=== PATIENT | male | born 1990 | race Caucasian/White ===

== ENCOUNTER 2020-08-13 22:32 | Emergency (ER) | payer OTHER ==
[~2020-08-13] VITALS: Ht 185.4 cm; Wt 90.7 kg
[~2020-08-13 22:32] MED LIST: ADVIL200 MG PO; CYCLOBENZAPRINE10 MG PO; EC-NAPROXEN375 MG PO; NORCO 7.5-3251 EACH PO; ONDANSETRON ODT8 MG PO
--- OUTSIDE RECORDS SUMMARY | 2020-08-13 22:34 | XMS ---
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 Care History Medical/Surgical 03/05/2019 [facility] CASE MANAGEMENT REFERRAL MADE- PATIENT HAS [facility] AND NO PCP. E.DHeaven VISIT COUNT (12 MO.) 2 [facility] TOTAL 3 NOTE: Visits indicate total known visits. ED/UCC VISIT TRACKING (12 MO.) 08/13/2020 22:32 [facility] [place] TYPE: Emergency COMPLAINT: - SOB 02/15/2020 23:36 [facility] [place] TYPE: Emergency DIAGNOSES: - CELLULITIS 02/07/2020 02:12 [facility] [place] TYPE: Emergency DIAGNOSES: - Leg Pain - Cellulitis of left lower limb INPATIENT VISIT TRACKING (12 MO.) 02/15/2020 23:36 [facility] [place] TYPE: Medical Surgical DIAGNOSES: - Cellulitis of unspecified part of limb - CELLULITIS [id number]
--- NOTE | 2020-08-15 13:58 | EKG ---
[facility] [address] [facility] [place] [address] Signed Sinus tachycardia Lateral infarct , age undetermined Abnormal ECG When compared with ECG of 03-FEB-2017 12:54, Vent. rate has increased BY 34 BPM Lateral infarct is now present Non-specific change in ST segment in Lateral leads Nonspecific T wave abnormality now evident in Lateral leads Confirmed by HANK DAVE DO ([id number]) on 08/15/2020 1:57:59 PM Electronically Signed By: HANK DAVE DO 08/15/20 1358 PATIENT NAME: JET GERMAIN Electrocardiogram DATE OF : 89 PHYSICIAN: HANK DAVE DO REPORT #: [id number] REPORT IS CONFIDENTIAL AND NOT TO BE RELEASED WITHOUT AUTHORIZATION
== END 2020-08-13 23:26 | disposition home or self-care (01) ==
LOC: ED 22:32
DX: R06.02 Shortness of breath (principal); Z76.5 Malingerer [conscious simulation]; F17.200 Nicotine dependence, unspecified, uncomplicated
CPT/HCPCS: 71045; 93005; 93010; 99285-25

== ENCOUNTER 2020-10-13 14:02 | Emergency (ER) | payer OTHER ==
[~2020-10-13] VITALS: Ht 185.4 cm; Wt 90.7 kg
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
[2020-10-13] MEDS ORDERED: CHLORDIAZEPOXID25 MG PO (16:37)
== END 2020-10-14 01:10 | disposition home or self-care (01) ==
LOC: ED 14:02
DX: K56.41 Fecal impaction (principal); R33.9 Retention of urine, unspecified; F17.200 Nicotine dependence, unspecified, uncomplicated; Z79.899 Other long term (current) drug therapy
CPT/HCPCS: 51702; 51798; 74177; 80053; 81001; 83605; 83690; 85025; 99284-25; J1885; J2270; J2405; J7121; Q9967

== ENCOUNTER 2024-05-12 14:31 | Emergency (ER) | payer OTHER ==
[~2024-05-12] VITALS: Ht 185.4 cm; Wt 79.0 kg
[~2024-05-12 14:31] MED LIST changes: +CHLORDIAZEPOXID25 MG PO
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
[2024-05-12] MEDS ORDERED: BUSPIRONE HCL5 MG PO (15:43)
[2024-05-12] MEDS ORDERED: SUBOXONE 2 MG-1 EAC2 SL (15:44)
[2024-05-12] MEDS ORDERED: CLEOCIN HCL300 MG PO (16:01)
[2024-05-12 16:08] VITALS: BP 126/94
== END 2024-05-12 16:05 | disposition home or self-care (01) ==
LOC: ED 14:31
DX: L02.211 Cutaneous abscess of abdominal wall (principal); F17.200 Nicotine dependence, unspecified, uncomplicated; Z79.899 Other long term (current) drug therapy
CPT/HCPCS: 10060; 99283-25

== ENCOUNTER 2025-05-03 11:13 | Emergency (ER) | payer OTHER ==
[~2025-05-03] VITALS: Ht 185.4 cm; Wt 86.5 kg
[~2025-05-03 11:13] MED LIST changes: +BUSPIRONE HCL5 MG PO; +CLEOCIN HCL300 MG PO; +SUBOXONE 2 MG-1 EAC2 SL
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
[2025-05-03 11:30] LABS: BASOPHILS 0.7 % (0.2-1.2); EOSINOPHILS 2.4 % (0.8-7.0); HEMATOCRIT 35.3 % (40.1-51.0); HEMOGLOBIN 11.9 g/dL (13.7-17.5); LYMPHOCYTES 12.2 % (21.8-53.1); MCH 28.2 PG (25.7-32.2); MCHC 33.7 g/dL (32.3-36.5); MCV 83.6 fL (79.0-92.2); MONOCYTES 6.5 % (5.3-12.2); PLATELET COUNT 260 K/uL (163-337); RBC 4.22 M/uL (4.63-6.08)
[2025-05-03 11:37] LABS: INR 1.11 (0.80-1.30); PROTIME 13.8 Sec (11.2-14.2)
[2025-05-03 11:43] LABS: ALBUMIN/GLOBULIN RATIO 1.11 (1.1-2.4); ALCOHOL, MEDICAL <3 ng/dL (<3); ALKALINE PHOSPHATASE 96 U/L (46-116); ALT (SGPT) 39 U/L (14-59); ANION GAP 13.9 (7-21); AST (SGOT) 46 U/L (15-37); BILIRUBIN, TOTAL 0.4 mg/dL (0.2-1.0); BUN/CREATININE RATIO 13.76 (6.0-28.6); CALCIUM 9.2 mg/dL (8.5-10.1); CARBON DIOXIDE 28 mmol/L (21-32); CHLORIDE 101 mmol/L (98-107); CREATININE, SERUM 1.09 mg/dL (0.70-1.30); GLOMERULAR FILTRATION RATE,EST 91 mL/min (>60); POTASSIUM 3.9 mmol/L (3.5-5.1); PROTEIN, TOTAL 7.6 g/dL (6.4-8.2); UREA NITROGEN 15 mg/dL (7-18)
[2025-05-03] MEDS ORDERED: IBUPROFEN 600 MG TAB PO ONE (13:00)
[2025-05-03] MEDS ORDERED: ACETAMINOPHEN 500 MG TAB PO ONE (13:00)
[2025-05-03 13:06] VITALS: BP 129/81
== END 2025-05-03 13:06 | disposition home or self-care (01) ==
LOC: ED 11:13
PROVIDERS: Emergency Medicine
DX: S00.12XA Contusion of left eyelid and periocular area, initial encounter (principal); S00.81XA Abrasion of other part of head, initial encounter; S20.411A Abrasion of right back wall of thorax, initial encounter; S40.211A Abrasion of right shoulder, initial encounter; F17.200 Nicotine dependence, unspecified, uncomplicated; Y04.8XXA Assault by other bodily force, initial encounter
CPT/HCPCS: 36415; 70450; 71260; 73030; 74177; 80053; 80307; 85025; 85610; 99284-25; A9270; G0480; Q9967

== ENCOUNTER 2025-06-18 17:16 | Emergency (ER) | payer OTHER ==
[~2025-06-18] VITALS: Ht 185.4 cm; Wt 89.0 kg
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
[2025-06-18] MEDS ORDERED: AMOX TR-K CLV1 EAC1 PO (19:52)
[2025-06-18] MEDS ORDERED: NEOMYCIN/POLYMYXIN/HYDROCORT 10 ML HOME.PACK OTIC ONE (20:00)
[2025-06-18] MEDS ORDERED: AMOXICILLIN/CLAVULANATE K 875 MG HOME.PACK PO ONE (20:00)
[2025-06-18 20:08] VITALS: BP 123/67
== END 2025-06-18 20:09 | disposition home or self-care (01) ==
LOC: ED 17:16
DX: H66.92 Otitis media, unspecified, left ear (principal); H60.92 Unspecified otitis externa, left ear; F17.200 Nicotine dependence, unspecified, uncomplicated